=== PATIENT | female | born 1975 | race Caucasian/White ===

== ENCOUNTER → 2018-07-16 | Outpatient (CLI) | payer OTHER ==
[~2018-07-16] MED LIST: ACEBUTCAFT PO; ALBU90OI INH; ALBU90OI6 INH; AMOX500 PO; BENZ100A PO; CETI10 PO; CITA20 PO; CODACE30 PO; CYCL10 PO; Crutch1 EACH MISC; DIAZ5 PO; HYDACE5 PO; HYDGUAL120 PO; IBUP800 PO; LEVSOD100 PO; LEVSOD25 PO; META800 PO; METCAR500 PO; NAPR500 PO; Naprosyn500 MG PO; Norco 5-325 Ta1 EACH PO; ONDA4 PO; OXYACE5T PO; PRED10 PO; PROM25 PO; Prilosec Otc20 MG; RXCODGUASY PO; RXHYDACE PO; SERT100 PO; SPACER IH; ZYRTEC10 M2 PO
== END | disposition home or self-care (01) ==
LOC: LAB 17:36 → LAB SHORT 17:36
DX: N89.8 Other specified noninflammatory disorders of vagina (principal)
CPT/HCPCS: 87070; 87205

== ENCOUNTER 2020-11-17 08:01 | Day surgery (SDC) | payer OTHER ==
[~2020-11-17 08:01] MED LIST changes: +Metformin HCl750 MG PO; +SOMA250 MG PO
--- NOTE | 2020-11-17 08:32 | NUR ---
Ambulatory in Day Surgery History, Chart, Medications and Allergies reviewed before start of procedure. Lungs clear T/O to Auscultation. Patient confirms NPO status and agrees with scheduled surgery. Pre-Op teaching done. Pt verbalizes understanding. Patient States Post-Procedure ride home has been arranged.
--- NOTE | 2020-11-17 09:16 | NUR ---
PT TOLERATED PROCEDURE WELL. VSS. PT TOLERATING ORAL FLUIDS AND PUDDING. DENIES ANY FURTHER NEEDS AT THIS TIME.
--- NOTE | 2020-11-17 09:43 | NUR ---
Patient up to Ambulate independently. Gait steady. Discharge instructions reviewed with patient. Patient verbalizes understanding. Copy given to patient to take home.
== END 2020-11-17 22:45 | disposition home or self-care (01) ==
LOC: CT 08:01 → ORD 08:01 → CT 09:00 → ORD 22:45 → CT 11-20 10:00
DX: R07.89 Other chest pain (principal); M54.2 Cervicalgia; R09.89 Other specified symptoms and signs involving the circulatory and respiratory systems; R94.39 Abnormal result of other cardiovascular function study; R29.898 Other symptoms and signs involving the musculoskeletal system; E06.3 Autoimmune thyroiditis; H53.9 Unspecified visual disturbance
CPT/HCPCS: 75574; Q9967

== ENCOUNTER 2020-12-01 18:36 | Emergency (ER) | payer OTHER ==
[~2020-12-01] VITALS: Ht 165.1 cm; Wt 97.5 kg
[2020-12-01 18:58] LABS: BASOPHILS ABSOLUTE AUTO 0.06 K/mm3 (0.00-0.23); BASOPHILS PERCENT AUTO 1 % (0-2); EOSINOPHILS ABSOLUTE AUTO 0.09 K/mm3 (0.00-0.68); EOSINOPHILS PERCENT AUTO 1 % (0-6); Hematocrit 37.8 % (33.0-51.0); Hemoglobin 12.1 g/dL (11.5-16.0); IMMATURE GRAN ABSOLUTE AUTO 0.01 K/mm3 (0.00-0.10); IMMATURE GRAN PERCENT AUTO 0 % (0-1); LYMPHOCYTES PERCENT AUTO 38 % (21-46); MONOCYTES ABSOLUTE AUTO 0.58 K/mm3 (0.16-1.47); MONOCYTES PERCENT AUTO 7 % (4-13); Mean Corpuscular HGB 29.3 pg (26.0-34.0); Mean Corpuscular Volume 92 fL (80-100); Mean Platelet Volume 9.8 fL (9.1-12.4); NEUTROPHILS ABSOLUTE AUTO 4.74 K/mm3 (1.96-9.15); NEUTROPHILS PERCENT AUTO 54 % (41-73); Platelet Count 310 K/mm3 (150-400); RDW Coefficient Variation 12.3 % (11.7-14.2); RDW Standard Deviation 41.2 fL (35.1-46.3); Red Blood Cell Count 4.13 M/mm3 (3.80-5.20); White Blood Cell Count 8.78 K/mm3 (4.00-11.30)
[2020-12-01 19:20] LABS: Alanine Aminotransfer (ALT/SGP 20 U/L (12-78); Albumin, Blood 3.9 g/dL (3.4-5.0); Albumin/Globulin Ratio 1.2 (0.8-1.8); Alk Phos 75 U/L (50-136); Anion Gap 6 mmol/L (6-16); Aspartate Aminotrans (AST/SGOT 10 U/L (12-37); Bilirubin, Total 0.4 mg/dL (0.1-1.0); Blood Urea Nitrogen 12 mg/dL (8-24); CO2, Blood 20 mmol/L (21-32); Calcium, Blood 8.1 mg/dL (8.5-10.1); Chloride, Blood 115 mmol/L (98-108); Creatinine, Blood 0.71 mg/dL (0.40-1.00); Globulin, Blood 3.2 g/dL (2.2-4.0); Glomerular Filtration Rate >60 (60-); Glucose, Blood 93 mg/dL (70-99); Potassium, Blood 3.8 mmol/L (3.5-5.5); Sodium, Blood 141 mmol/L (136-145); Total Protein, Blood 7.1 g/dL (6.4-8.2); Troponin I <0.015 ng/mL (0.000-0.040)
[2020-12-01] MEDS ORDERED: ISODIN20 (19:47)
== END 2020-12-01 21:11 | disposition home or self-care (01) ==
LOC: ER 18:36
PROVIDERS: Physician Assistant
DX: G43.909 Migraine, unspecified, not intractable, without status migrainosus (principal); E03.9 Hypothyroidism, unspecified; Z79.84 Long term (current) use of oral hypoglycemic drugs; Z79.899 Other long term (current) drug therapy; Z87.891 Personal history of nicotine dependence
CPT/HCPCS: 36415; 71046; 80053; 84484; 85025; 93005; 93010; 96374; 96375; 99284-25; J1200; J1790; J1885

== ENCOUNTER 2021-08-14 18:46 | Emergency (ER) | payer OTHER ==
[~2021-08-14] VITALS: Ht 165.1 cm; Wt 101.5 kg
[~2021-08-14 18:46] MED LIST changes: +ISODIN20
[2021-08-14 19:32] LABS: BASOPHILS ABSOLUTE AUTO 0.05 K/mm3 (0.00-0.23); BASOPHILS PERCENT AUTO 1 % (0-2); EOSINOPHILS ABSOLUTE AUTO 0.11 K/mm3 (0.00-0.68); EOSINOPHILS PERCENT AUTO 1 % (0-6); Hematocrit 36.6 % (33.0-51.0); IMMATURE GRAN ABSOLUTE AUTO 0.03 K/mm3 (0.00-0.10); IMMATURE GRAN PERCENT AUTO 0 % (0-1); LYMPHOCYTES ABSOLUTE AUTO 3.11 K/mm3 (0.84-5.20); LYMPHOCYTES PERCENT AUTO 33 % (21-46); MONOCYTES ABSOLUTE AUTO 0.75 K/mm3 (0.16-1.47); MONOCYTES PERCENT AUTO 8 % (4-13); Mean Corpuscular HGB 29.6 pg (26.0-34.0); Mean Corpuscular HGB Conc 32.8 g/dL (31.5-36.5); Mean Corpuscular Volume 90 fL (80-100); Mean Platelet Volume 9.7 fL (9.1-12.4); NEUTROPHILS ABSOLUTE AUTO 5.28 K/mm3 (1.96-9.15); NEUTROPHILS PERCENT AUTO 57 % (41-73); Platelet Count 307 K/mm3 (150-400); RDW Coefficient Variation 12.6 % (11.7-14.2); RDW Standard Deviation 41.6 fL (35.1-46.3); Red Blood Cell Count 4.05 M/mm3 (3.80-5.20); White Blood Cell Count 9.33 K/mm3 (4.00-11.30)
[2021-08-14] MEDS ORDERED: Bisoprolol Fumar5 MG PO (19:40)
[2021-08-14] MEDS ORDERED: TOPI25 (19:40)
[2021-08-14] MEDS ORDERED: DULO60 PO (19:41)
[2021-08-14 20:01] LABS: Troponin I <0.015 ng/mL (0.000-0.040)
[2021-08-14 20:17] LABS: Alanine Aminotransfer (ALT/SGP 23 U/L (12-78); Albumin, Blood 3.8 g/dL (3.4-5.0); Alk Phos 80 U/L (50-136); Anion Gap 8 mmol/L (6-16); Aspartate Aminotrans (AST/SGOT 15 U/L (12-37); Bilirubin, Total 0.5 mg/dL (0.1-1.0); Blood Urea Nitrogen 17 mg/dL (8-24); Bun/Creatinine Ratio 16.2 (12.0-20.0); CO2, Blood 20 mmol/L (21-32); Calcium, Blood 8.5 mg/dL (8.5-10.1); Chloride, Blood 112 mmol/L (98-108); Creatinine, Blood 1.05 mg/dL (0.40-1.00); Globulin, Blood 3.8 g/dL (2.2-4.0); Glomerular Filtration Rate 57 (60-); Glucose, Blood 86 mg/dL (70-99); Potassium, Blood 3.8 mmol/L (3.5-5.5); Sodium, Blood 140 mmol/L (136-145); Total Protein, Blood 7.6 g/dL (6.4-8.2)
== END 2021-08-15 00:35 | disposition home or self-care (01) ==
LOC: ER 18:46
PROVIDERS: Emergency Medicine
DX: R07.89 Other chest pain (principal); E03.9 Hypothyroidism, unspecified; Z79.899 Other long term (current) drug therapy
CPT/HCPCS: 36415; 71046; 80053; 84484; 85025; 85379; 93005; 93010; A9270; J1885

== ENCOUNTER 2022-03-12 09:09 | Day surgery (SDC) | payer OTHER ==
[~2022-03-12] VITALS: Ht 165.1 cm; Wt 106.7 kg
[~2022-03-12 09:09] MED LIST changes: +Bisoprolol Fumar5 MG PO; +DULO60 PO; +TOPI25
[2022-03-12] MEDS ORDERED: NEBI10 (09:37)
--- NOTE | 2022-03-12 14:23 | NUR ---
03/12/22 1423 Waleska Morrison MONITOR SHUT OFF BEFORE VITAL STRIP WAS PRINTED. VS STABLE THROUGHOUT RECOVERY.
== END 2022-03-12 13:20 | disposition home or self-care (01) ==
LOC: ORSCSDS 09:09
PROVIDERS: Surgery
PROC: 0FT44ZZ Resection of Gallbladder, Percutaneous Endoscopic Approach (ICD-10-PCS; principal; 2022-03-12 10:30)
DX: K82.8 Other specified diseases of gallbladder (principal); F41.8 Other specified anxiety disorders; K21.9 Gastro-esophageal reflux disease without esophagitis; E78.5 Hyperlipidemia, unspecified; I10 Essential (primary) hypertension; G47.33 Obstructive sleep apnea (adult) (pediatric); E06.3 Autoimmune thyroiditis; J45.998 Other asthma; Z79.899 Other long term (current) drug therapy; Z87.891 Personal history of nicotine dependence; E66.9 Obesity, unspecified; Z68.39 Body mass index [BMI] 39.0-39.9, adult
CPT/HCPCS: 88304; A9270; J0694; J1100; J1885; J2250; J2405; J2704; J3010

== ENCOUNTER 2022-04-02 08:56 | Emergency (ER) | payer OTHER ==
[~2022-04-02] VITALS: Ht 165.1 cm; Wt 106.6 kg
[~2022-04-02 08:56] MED LIST changes: +NEBI10
== END 2022-04-02 09:47 | disposition home or self-care (01) ==
LOC: ER 08:56
DX: S16.1XXA Strain of muscle, fascia and tendon at neck level, initial encounter (principal); V89.2XXA Person injured in unspecified motor-vehicle accident, traffic, initial encounter; Z88.8 Allergy status to other drugs, medicaments and biological substances; Z79.899 Other long term (current) drug therapy; Z87.891 Personal history of nicotine dependence
CPT/HCPCS: 99283

== ENCOUNTER 2023-02-03 12:57 | Day surgery (SDC) | payer OTHER ==
[~2023-02-03] VITALS: Ht 165.1 cm; Wt 101.3 kg
[2023-02-03] MEDS ORDERED: ALLEGRA ALLERG180 MG PO (13:24)
[2023-02-03] MEDS ORDERED: NEBI5 PO (13:24)
[2023-02-03] MEDS ORDERED: OMEP20ER PO (13:25)
[2023-02-03] MEDS ORDERED: SPIR25 PO (13:29)
--- NOTE | 2023-02-03 15:21 | NUR ---
02/03/23 1521 Cherelle Romero ARMS SECURED ON PADDED ARM BOARDS, PILLOW UNDER HEAD, [facility].
== END 2023-02-03 17:07 | disposition home or self-care (01) ==
LOC: ORSCSDS 12:57
PROVIDERS: Podiatrist Foot & Ankle Surgery
PROC: 0SBG4ZZ Excision of Left Ankle Joint, Percutaneous Endoscopic Approach (ICD-10-PCS; principal; 2023-02-03 14:45)
PROC: 0SQ Lower Joints, Repair (ICD-10-PCS; principal; 2023-02-03 14:45)
DX: M93.272 Osteochondritis dissecans, left ankle and joints of left foot (principal); M25.472 Effusion, left ankle; G47.33 Obstructive sleep apnea (adult) (pediatric); Z87.891 Personal history of nicotine dependence; I10 Essential (primary) hypertension; E03.9 Hypothyroidism, unspecified; Z79.899 Other long term (current) drug therapy; E66.9 Obesity, unspecified; Z68.37 Body mass index [BMI] 37.0-37.9, adult
CPT/HCPCS: A9270; C1713; C1762; J0171; J0690; J1100; J1885; J2250; J2405; J2704; J2765; J2795; J3010